=== PATIENT | male | born 1985 | race Caucasian/White ===

== ENCOUNTER 2016-05-02 21:58 | Emergency (ER) | payer OTHER ==
[~2016-05-02] VITALS: Ht 188 cm; Wt 126.9 kg
[~2016-05-02 21:58] MED LIST: AMLOD-VALSA-HC1 EAC1 PO; ANIMAL CHEWS1 EACH PO; ASPIRIN81 M2 PO; CELEXA10 MG PO; CIPRO500 MG PO; CITALOPRAM HBR10 MG PO; CITALOPRAM HBR20 MG PO; DAILY VALUE1 EACH PO; FENOFIBRATE160 M1 PO; FISH OIL300 MG PO; FLEXERIL10 MG PO; FLEXERIL5 MG PO; FLOMAX0.4 MG PO; FUROSEMIDE40 MG PO; INDOCIN25 MG PO; KEFLEX500 MG PO; LAMOTRIGINE200 MG PO; LIDODERM 5% P1 PATCH TD; MOBIC7.5 MG PO; MOTRIN800 MG PO; NAPROSYN500 MG PO; NAPROXEN500 MG PO; NO; NOHOMEMEDS; NORCO 7.5/321 TABLET PO; PERCOCET 5/31 TABLET PO; PREDNISONE20 MG PO; SIMVASTATIN40 MG PO; TESSALON PERLE100 MG PO; TYLENOL REGULA325 MG PO; ULTRAM50 MG PO; VALIUM5 MG PO; ZANTAC150 MG PO; ZOFRAN4 MG PO; ZOLOFT100 MG PO; ZYRTEC10 M2 PO
[2016-05-02] MEDS ORDERED: MEDROL DOSEPAK4 MG PO (22:45)
[2016-05-02] MEDS ORDERED: NAPROSYN500 MG PO (22:45)
[2016-05-02] MEDS ORDERED: VALIUM5 MG PO (22:45)
[2016-05-02 23:21] VITALS: BP 130/88
== END 2016-05-02 23:22 | disposition home or self-care (01) ==
LOC: EME 21:58
DX: M54.41 Lumbago with sciatica, right side (principal); F17.200 Nicotine dependence, unspecified, uncomplicated
CPT/HCPCS: 99281; 99283; J1100; J1885

== ENCOUNTER 2016-05-24 21:49 | Emergency (ER) | payer OTHER ==
[~2016-05-24] VITALS: Ht 188 cm; Wt 102.0 kg
[~2016-05-24 21:49] MED LIST changes: +MEDROL DOSEPAK4 MG PO
[2016-05-24 22:52] LABS: INFLUENZA A VIRAL ANTIGEN NEGATIVE; INFLUENZA B VIRAL ANTIGEN NEGATIVE
[2016-05-24] MEDS ORDERED: FIORICET 50-301 EACH PO (23:08)
[2016-05-24 23:26] VITALS: BP 136/96
== END 2016-05-24 23:27 | disposition home or self-care (01) ==
LOC: EME 21:49
PROVIDERS: Physician Assistant
DX: B34.9 Viral infection, unspecified (principal); R51 Headache; Z87.442 Personal history of urinary calculi; F17.200 Nicotine dependence, unspecified, uncomplicated
CPT/HCPCS: 87502; 99281; 99284

== ENCOUNTER 2016-08-08 23:06 | Emergency (ER) | payer OTHER ==
[~2016-08-08] VITALS: Ht 188 cm; Wt 132.5 kg
[~2016-08-08 23:06] MED LIST changes: +FIORICET 50-301 EACH PO
[2016-08-08] MEDS ORDERED: MEDROL DOSEPAK4 MG PO (23:40)
[2016-08-08] MEDS ORDERED: FLEXERIL10 MG PO (23:40)
[2016-08-08] MEDS ORDERED: NAPROSYN500 MG PO (23:40)
[2016-08-09 00:10] VITALS: BP 139/99
== END 2016-08-09 00:15 | disposition home or self-care (01) ==
LOC: EME 23:06
DX: M54.12 Radiculopathy, cervical region (principal); M79.602 Pain in left arm; F17.200 Nicotine dependence, unspecified, uncomplicated
CPT/HCPCS: 99281; 99284

== ENCOUNTER 2016-10-25 16:04 | Emergency (ER) | payer OTHER ==
[~2016-10-25] VITALS: Ht 188 cm; Wt 115.0 kg
[2016-10-25 16:46] LABS: HEMATOCRIT 46.7 % (38.0-50.0); MCH 28.7 PG (29.0-34.0); MCHC 33.2 G/DL (30.0-36.0); MCV 86.3 FL (86-99); PLATELET COUNT 356 K/uL (156-360); RBC DIS.WIDTH-CV 12.8 % (11.8-14.6); RBC DIS.WIDTH-SD 39.8 % (39-53); RED BLOOD COUNT 5.41 M/uL (4.00-5.50); WHITE BLOOD COUNT 11.4 K/uL (4.1-10.2)
[2016-10-25 16:54] LABS: CHLORIDE 107 mEq/L (99-109); POTASSIUM 3.9 mEq/L (3.7-5.4); SODIUM 139 mEq/L (136-147)
[2016-10-25 16:56] LABS: GLUCOSE 153 mg/dL (70-99)
[2016-10-25 16:57] LABS: ANION GAP 9 MEQ/L (2-14)
[2016-10-25 17:00] LABS: GFR ESTIMATE (CALCULATED) > 59 mL/min/; UREA NITROGEN (BUN) 10 mg/dL (9-23)
[2016-10-25 17:12] LABS: ADD MIUA? YES; BILIRUBIN NEGATIVE; BLOOD LARGE; COLOR AMBER ((YELLOW)); GLUCOSE (STRIP) NEGATIVE; KETONES NEGATIVE; LEUKOCYTES NEGATIVE; NITRITE NEGATIVE; PROTEIN (STRIP) 100; SPECIFIC GRAVITY 1.032 (1.000-1.030)
[2016-10-25 17:32] LABS: EPITHELIAL CELLS RARE /HPF; MUCUS 3+ /LPF; RED BLOOD CELLS TNTC /HPF (0-5); WHITE BLOOD CELLS 0-5 /HPF (0-5)
[2016-10-25 17:33] LABS: BACTERIA 1+ /HPF; UCUL ADDED? NO
[2016-10-25 17:34] LABS: AMORPHOUS URATES CRYSTALS RARE; CALCIUM OXALATE CRYSTALS 1+ /HPF
[2016-10-25 21:29] LABS: ADD MIUA? YES; BILIRUBIN NEGATIVE; BLOOD LARGE; COLOR YELLOW ((YELLOW)); GLUCOSE (STRIP) NEGATIVE; KETONES NEGATIVE; LEUKOCYTES NEGATIVE; NITRITE NEGATIVE; PROTEIN (STRIP) 30; UROBILINOGEN 0.2 MG/DL (0.2-1.0)
[2016-10-25 22:34] LABS: UCUL ADDED? NO
[2016-10-25] MEDS ORDERED: OXAYDO5 MG PO (22:37)
[2016-10-25] MEDS ORDERED: OXYCODONE HCL5 MG PO (22:43)
[2016-10-25 23:45] VITALS: BP 134/81
== END 2016-10-25 23:44 | disposition home or self-care (01) ==
LOC: EME 16:04
PROVIDERS: Emergency Medicine
DX: N20.0 Calculus of kidney (principal); Z87.442 Personal history of urinary calculi; Z87.891 Personal history of nicotine dependence
CPT/HCPCS: 74176; 80048; 81003; 85027; 99281; 99285; J1885; J2270; J2405; J7030

== ENCOUNTER 2016-11-03 22:01 | Emergency (ER) | payer OTHER ==
[~2016-11-03] VITALS: Ht 188 cm; Wt 128.7 kg
[~2016-11-03 22:01] MED LIST changes: +OXAYDO5 MG PO; +OXYCODONE HCL5 MG PO
[2016-11-03 22:55] LABS: ADD MIUA? YES; BILIRUBIN NEGATIVE; BLOOD LARGE; COLOR YELLOW ((YELLOW)); GLUCOSE (STRIP) NEGATIVE; KETONES NEGATIVE; LEUKOCYTES NEGATIVE; NITRITE NEGATIVE; PROTEIN (STRIP) 30; SPECIFIC GRAVITY 1.034 (1.000-1.030); UROBILINOGEN 0.2 MG/DL (0.2-1.0)
[2016-11-03 23:35] LABS: HEMATOCRIT 44.9 % (38.0-50.0); MCH 28.7 PG (29.0-34.0); MCHC 32.7 G/DL (30.0-36.0); MCV 87.7 FL (86-99); PLATELET COUNT 346 K/uL (156-360); RBC DIS.WIDTH-CV 12.7 % (11.8-14.6); RBC DIS.WIDTH-SD 40.8 % (39-53); RED BLOOD COUNT 5.12 M/uL (4.00-5.50)
[2016-11-03 23:55] LABS: CHLORIDE 108 mEq/L (99-109); POTASSIUM 3.8 mEq/L (3.7-5.4); SODIUM 141 mEq/L (136-147)
[2016-11-03 23:56] LABS: GLUCOSE 132 mg/dL (70-99)
[2016-11-03 23:58] LABS: ANION GAP 10 MEQ/L (2-14)
[2016-11-03 23:59] LABS: BACTERIA NONE SEEN /HPF; CASTS NONE SEEN /LPF; EPITHELIAL CELLS NONE SEEN /HPF; MUCUS NONE SEEN /LPF; RED BLOOD CELLS TNTC /HPF (0-5); UCUL ADDED? NO; WHITE BLOOD CELLS RARE /HPF (0-5)
[2016-11-04] LABS: AMORPHOUS URATES CRYSTALS 3+; CALCIUM OXALATE CRYSTALS 2+ /HPF; CRYSTALS PRESENT
[2016-11-04] LABS: GFR ESTIMATE (CALCULATED) 58 mL/min/
[2016-11-04 00:01] LABS: UREA NITROGEN (BUN) 24 mg/dL (9-23)
[2016-11-04 02:25] VITALS: BP 136/82
== END 2016-11-04 02:26 | disposition home or self-care (01) ==
LOC: EXP 22:01 → EME 22:01 → EXP 11-04 02:26
PROVIDERS: Physician Assistant
DX: N20.2 Calculus of kidney with calculus of ureter (principal); Z87.442 Personal history of urinary calculi; Z87.891 Personal history of nicotine dependence; F43.10 Post-traumatic stress disorder, unspecified
CPT/HCPCS: 74020; 80048; 81003; 85027; 99281; 99285; J1885; J2405; J7030

== ENCOUNTER 2017-01-05 20:52 | Emergency (ER) | payer OTHER ==
[~2017-01-05] VITALS: Ht 188 cm; Wt 129.0 kg
[2017-01-05 21:35] LABS: CHLORIDE 105 mEq/L (99-109); POTASSIUM 3.9 mEq/L (3.7-5.4); SODIUM 141 mEq/L (136-147)
[2017-01-05 21:37] LABS: GLUCOSE 109 mg/dL (70-99)
[2017-01-05 21:39] LABS: ANION GAP 13 MEQ/L (2-14)
[2017-01-05 21:40] LABS: HEMATOCRIT 46.8 % (38.0-50.0); MCH 29.3 PG (29.0-34.0); MCHC 32.7 G/DL (30.0-36.0); MCV 89.7 FL (86-99); MEAN PLAT.VOLUME 10.4 uM^3 (9.0-12.4); PLATELET COUNT 325 K/uL (156-360); RBC DIS.WIDTH-CV 13.1 % (11.8-14.6); RBC DIS.WIDTH-SD 43.2 % (39-53); RED BLOOD COUNT 5.22 M/uL (4.00-5.50); WHITE BLOOD COUNT 11.1 K/uL (4.1-10.2)
[2017-01-05 21:41] LABS: GFR ESTIMATE (CALCULATED) > 59 mL/min/
[2017-01-05 21:42] LABS: UREA NITROGEN (BUN) 8 mg/dL (9-23)
[2017-01-05 21:49] LABS: TROP-I INTERPRETATION NEGATIVE; TROPONIN-I < 0.01 ng/mL (0.0-0.30)
[2017-01-05] MEDS ORDERED: ANTIVERT25 MG PO (23:24)
[2017-01-05 23:37] VITALS: BP 131/94
== END 2017-01-05 23:37 | disposition home or self-care (01) ==
LOC: EME 20:52
DX: R42 Dizziness and giddiness (principal); R56.9 Unspecified convulsions; K21.9 Gastro-esophageal reflux disease without esophagitis; G43.909 Migraine, unspecified, not intractable, without status migrainosus; F32.9 Major depressive disorder, single episode, unspecified; Z87.442 Personal history of urinary calculi; F17.200 Nicotine dependence, unspecified, uncomplicated; F43.10 Post-traumatic stress disorder, unspecified; Z91.5 Personal history of self-harm
CPT/HCPCS: 71020; 80048; 84484; 85027; 93005; 99281; 99284